=== PATIENT | female | born 2000 | race Caucasian/White ===

== ENCOUNTER → 2020-10-16 10:14 | Outpatient (BNVA) | payer OTHER, SELFPAY | PROVIDERS: Visit Provider Psychiatry & Neurology Neurology | DX: F41.9 Anxiety disorder, unspecified (principal) | CPT/HCPCS: 90834; 90791 ==

== ENCOUNTER 2022-06-26 03:44 | Outpatient (CLI) | payer MEDICAID, SELFPAY ==
[2022-06-26] VITALS (37 sets, daily range): BP systolic 138–160; BP diastolic 73–86; PULSE 16–130; RESP 18; TEMP 36.4; O2SAT 97–99; BMI 32.5
[2022-06-26] MEDS: betamethasone susp 6 mg/mL 5 mL 12 MG IM (04:29)
[2022-06-26] MEDS: terbutaline 1 mg/mL INJ 0.25 MG SUBCUT ×2 (04:29→05:57)
[2022-06-26] MEDS: magnesium sulfate premix 20 GM/500 ML BAG IV (04:36)
[2022-06-26] MEDS: magnesium sulfate premix 4 GM/100 ML PREMIX IV (04:37)
[2022-06-26] MEDS: dextrose 5%-lactated ringers 1,000 ML 125 ML IV (04:38)
[2022-06-26 04:39] LABS: Basophils # 0.1 10^3/uL (0.0-0.1); Basophils % 0.4 %; Eosinophils # 0.2 10^3/uL (0.0-0.8); Hemoglobin 9.4 g/dL (11.5-15.3); Lymphocytes # 1.9 10^3/uL (0.8-4.8); Lymphocytes % 16.3 %; Mean Corpuscular HGB Conc 32.4 g/dL (30.0-36.0); Mean Corpuscular Hemoglobin 26.3 pg (28.0-34.0); Mean Platelet Volume 11.2 fL (7.4-10.4); Monocytes # 0.7 10^3/uL (0.2-0.9); Monocytes % 6.3 %; Neutrophils # 8.49 10^3/uL (1.8-7.7); Neutrophils % 74.2 %; Nucleated Red Blood Cells % 0 %; Platelet Count 212 10^3/cmm (130-400); Red Blood Count 3.58 10^6/uL (4.1-5.3); Red Cell Distribution Width 13.9 % (12.1-15.1); White Blood Count 11.5 10^3/uL (4.0-10.0)
[2022-06-26] MEDS: lactated ringers 1,000 ML 100 ML IV (04:53)
[2022-06-26] MEDS: ampicillin 2,000 MG in sodium chloride 0.9% (plus) 50 ML 100 MG IV (04:53)
[2022-06-26 04:56] LABS: Alanine Aminotransferase 13 U/L (0-33); Albumin Level 2.8 g/dL (3.5-5.2); Alkaline Phosphatase 138 U/L (35-105); Anion Gap 14.9 (5-19); Aspartate Amino Transferase 18 U/L (0-32); Blood Urea Nitrogen 14 mg/dL (6-20); Calcium 8.9 mg/dL (8.5-10.5); Carbon Dioxide 19 mmol/L (22-29); Chloride 107 mmol/L (98-107); Globulin 2.9 g/dL (1.3-4.6); Glucose 92 mg/dL (65-115); Osmolality Calculated 284 mOsm/kg (285-295); Potassium 3.9 mmol/L (3.5-5.1); Sodium 137 mmol/L (136-145); Total Bilirubin 0.3 mg/dL (0.15-1.2); Total Protein 5.7 g/dL (6.6-8.7)
--- NOTE | 2022-06-26 05:06 | P.HP_ITS ---
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 care has been at [facility]. Pt records reviewed, was treated with Macrobid for UTI at 18wks . Hx of Anxiety 09/2020 treated with Lexapro. Upon presenttion pt was dayday q 3-4 ., Cervix 4cm/90%/-1 vtx, almost 1 hr later after Tocolysis Cervix 4-5cm/90%/0vtx. EFM contractions tocolyzed. 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 Risk of babies needing NICU for Breathing assistance as well as special feeding. Vitals/I&O/Wt Last Vital Signs Pulse 105 H 06/26/22 05:01 Resp 18 06/26/22 03:56 BP 152/85 06/26/22 05:01 Pulse Ox 98 06/26/22 05:00 Weight last 48 hrs Weight 91.626 kg Physical Exam Const: COMMON NORMALS: no acute distress, patient oriented x3, healthy cristhian earing, alert and well nourished HENMT: COMMON NORMALS: normocephalic Resp: COMMON NORMALS: normal respiratory effort and clear to auscultation bilaterally Cardio: COMMON NORMALS: regular rate and regular rhythm Back/Pelvis: OTHER: cervix exam as above Extremity: COMMON NORMALS: normal to inspection Data 06/26/22 04:25 06/26/22 04:25 A&P Assessment and plan (1) 33 weeks gestation of : (2) Twin gestation in third trimester: (3) SROM (spontaneous rupture of membranes): Plan 1. Will Transfer to High Risk LD at [facility] for delivery for NICU services. Attestations Medical Necessity Statement*: High Risk care Twin Gestation at 33 wk with SROM. Anticipate Transfer. Time Spent in Patient Care: Greater than 35 minutes Coding Level of Care Code Acute Triage Clinician for Chg Fwd Diagnoses 33 weeks gestation of Z3A.33 Twin gestation in third trimester O30.003 SROM (spontaneous rupture of membranes)
[2022-06-26 05:22] LABS: Amphetamines Screen Urine Negative (Negative); Barbiturates Screen Urine Negative (Negative); Benzodiazepines Screen Urine Negative (Negative); Cocaine Screen Urine Negative (Negative); Opiate Screen Urine Negative (Negative); PCP Screen Urine Negative (Negative); THC Screen Urine Negative (Negative)
[2022-06-26 05:23] LABS: Nitrazine Paper, PH Positive
[2022-06-26 05:42] LABS: Hepatitis B Surface Antigen Non-Reactive (Nonreactive); Rubella IgG 63.2 IU/mL (0.0-10.0)
[2022-06-26 05:46] LABS: Rapid Plasma Reagin Syphilis Nonreactive (Nonreactive)
[2022-06-26 05:50] LABS: HIV 1 & 2 Antibody Non-Reactive (Non-Reactiv); HIV 1 & 2 Antigen Non-Reactive (Non-Reactiv)
[2022-06-26 05:51] LABS: Bacteria Urine 1+ /hpf; Bilirubin Urine Neg (Negative); Blood Urine 2+ (Negative); Glucose Urine UA Norm (Normal); Ketones Urine Negative (Negative); Leukocyte Esterase Urine Trace (Negative); Nitrate Urine Negative (Negative); Protein Urine 3+ (Negative); RBC Urine 15-25 /hpf (0-2); Urine Appearance Clear (CLEAR); Urine Color Yellow (Yellow); Urobilinogen Urine Norm (Negative); pH Urine 6.5 (5-7)
[2022-06-26 05:52] LABS: Add Urine Culture? No; Mucus Urine 1+ /hpf; Renal Epithelial Cells Urine 0-2 /hpf; Transitional Epi Cells Urine RARE /hpf
== END 2022-06-26 06:49 | disposition other institution (70) ==
LOC: OPOB 03:59 → OBGYN 04:02
PROVIDERS: Visit Provider Obstetrics & Gynecology
DX: O30.003 Twin pregnancy, unspecified number of placenta and unspecified number of amniotic sacs, third trimester (principal); Z3A.33 33 weeks gestation of pregnancy
CPT/HCPCS: 12345; 36415; 51702; 59025; 80053; 80306; 81001; 83986; 85025; 86592; 86762; 86850; 86900; 87340; 87491; 87591; 87806; 96372; 99211; J0290; J0702; J3105; J3475; J7120; J7121

== ENCOUNTER 2023-08-24 05:41 | Inpatient (IN) | payer MEDICAID, SELFPAY ==
[2023-08-24] VITALS (16 sets, daily range): BP systolic 122–149; BP diastolic 60–87; PULSE 61–85; RESP 18; TEMP 36.7–36.8; O2SAT 97–98; BMI 24.2
[2023-08-24] MEDS: oxytocin 30 UNIT/500 ML BAG 600 UNIT IV (05:58)
--- NOTE | 2023-08-24 06:29 | PM.OPHPUD ---
Labor & Delivery H&P Update Date of Procedure: August 24, 2023 Date H&P Performed: 08/20/23 Admission Diagnosis: at 39 weeks 3 days gestation in active labor Planned procedure: Expectant management and delivery
--- NOTE | 2023-08-24 06:32 | P.PCNOB_ITS ---
Delivery Note: Date of delivery: August 24, 2023 Procedure: Normal spontaneous vaginal delivery Estimated blood loss (mL): 100 Pre-Delivery Course: The patient had routine care at [facility]. She was blood type a positive, antibody negative, hepatitis B nonreactive, hepatitis C nonreactive, HIV nonreactive, rubella immune, GC chlamydia negative, RPR nonreactive, Q low risk, she was positive for GBS on her initial urine culture. Delivery: This is a 23-year-old at 39 weeks 3 days gestation who presented to labor and delivery completely dilated and effaced. I arrived less than a minute after and the was on mother's chest crying. The cord was clamped and cut. The placenta was delivered grossly intact and normal to inspection. There was a very small second-degree perineal laceration that was sutured using 3-0 chromic. The area was first cleaned with Betadine and numbed using 1% lidocaine. Mother and infant were doing well after delivery. Of note mother is known to be GBS positive but obviously did not have time to receive any antibiotics prior to delivery. History History History 1 Term 0 Miscarriages/Ectopic Living Children A&P Assessment and plan (1) Normal spontaneous vaginal delivery: Coding Level of Care Code Acute Code for Chg Fwd Diagnoses Normal spontaneous vaginal delivery O80
[2023-08-24] MEDS: LIDOCAINE 1% (06:40)
[2023-08-24 07:38] LABS: Basophils # 0.1 10^3/uL (0.0-0.1); Basophils % 0.4 %; Eosinophils # 0.3 10^3/uL (0.0-0.8); Eosinophils % 2.2 %; Hematocrit 38.7 % (36-47); Lymphocytes # 3.5 10^3/uL (0.8-4.8); Lymphocytes % 27.1 %; Mean Corpuscular HGB Conc 33.9 g/dL (30-55); Mean Corpuscular Volume 88.8 fl (85-98); Mean Platelet Volume 10.9 fL (7.4-10.4); Monocytes # 0.7 10^3/uL (0.2-0.9); Monocytes % 5.4 %; Neutrophils # 8.22 10^3/uL (1.8-7.7); Neutrophils % 64.2 %; Nucleated Red Blood Cells % 0 %; Platelet Count 303 10^3/cmm (157-399); Red Blood Count 4.36 10^6/uL (3.85-5.65); Red Cell Distribution Width 12.9 % (12.1-15.1); White Blood Count 12.79 10^3/uL (3.29-11.43)
[2023-08-24] MEDS: prenatal vitamin Capsule 1 CAP PO (08:49)
[2023-08-24] MEDS: lanolin oint 7 gm 1 APPLIC TOPICAL (08:49)
[2023-08-24] MEDS: docusate sodium 100 mg Capsule PO ×2 (08:49→21:05)
[2023-08-24] MEDS: ibuprofen 800 mg tablet PO ×3 (08:49→21:05)
[2023-08-24] MEDS: benzocaine-menthol 78 gm Canister 1 SPRAY TOPICAL (08:49)
[2023-08-24 20:29] LABS: Hematocrit 32.5 % (36-47); Mean Corpuscular HGB Conc 34.5 g/dL (30-55); Mean Corpuscular Hemoglobin 29.9 pg (27-33); Mean Corpuscular Volume 86.9 fl (85-98); Mean Platelet Volume 11.1 fL (7.4-10.4); Platelet Count 240 10^3/cmm (157-399); Red Blood Count 3.74 10^6/uL (3.85-5.65); Red Cell Distribution Width 13.1 % (12.1-15.1); White Blood Count 13.32 10^3/uL (3.29-11.43)
[2023-08-25 04:00] VITALS: BP 115/72; PULSE 75; RESP 18; TEMP 36.4; O2SAT 98
[2023-08-25] MEDS: docusate sodium 100 mg Capsule PO ×2 (08:47→20:46)
[2023-08-25] MEDS: ibuprofen 800 mg tablet PO ×3 (08:47→20:46)
[2023-08-25] MEDS: prenatal vitamin Capsule 1 CAP PO (08:47)
[2023-08-25 08:55] VITALS: BP 127/80; PULSE 85; TEMP 36.6; O2SAT 96
[2023-08-25 17:17] VITALS: BP 126/81; PULSE 89; TEMP 36.7
--- NOTE | 2023-08-25 17:44 | P.PN_ITS ---
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 Labor: Station: +1 Amniotic Membrane Status: Ruptured Vitals/I&O/Wt Last Vital Signs Temp 98.0 F 08/25/23 17:17 Pulse 89 08/25/23 17:17 Resp 18 08/25/23 04:00 BP 126/81 08/25/23 17:17 Pulse Ox 96 08/25/23 08:55 O2 Del Method Room Air 08/25/23 08:55 Weight last 48 hrs Weight 68.039 kg Physical Exam 2 Narrative: alert and oriented, feeding baby in bed RRR CTA soft, NT, ND, fundus firm 1+ edema but no calf tenderness Data 08/24/23 20:10 A&P Assessment and plan (1) Normal spontaneous vaginal delivery: routine care Attestations 2 Medical Necessity Statement*: routine care Coding Level of Care Code Acute Code for Chg Fwd Diagnoses Normal spontaneous vaginal delivery O80
[2023-08-25 22:00] VITALS: BP 120/75; PULSE 82; RESP 18; TEMP 36.6; TEMP 36.7; O2SAT 97
[2023-08-26 04:00] VITALS: BP 128/82; PULSE 74; RESP 16; TEMP 36.6; O2SAT 97
[2023-08-26 09:00] VITALS: BP 101/74; PULSE 112; RESP 17; TEMP 36.6; O2SAT 97
[2023-08-26] MEDS: prenatal vitamin Capsule 1 CAP PO (09:16)
[2023-08-26] MEDS: docusate sodium 100 mg Capsule PO (09:16)
--- NOTE | 2023-08-26 12:28 | PM.DCS ---
Discharge Providers Date of Admission: 08/24/23 05:41 Date of Discharge: August 26, 2023 Attending Provider at Admission: Shira Arboleda MD Attending Provider at Discharge: Shira Arboleda MD Diagnoses at Discharge Discharge Diagnosis (1) Normal spontaneous vaginal delivery: Status: Acute Reason for Visit Reason for Visit: contractions Hospital Course Hospital Course This is a 23 y/o who had a of a FT viable . She has done well after delivery and has vaginal bleeding. She is comfortable w d/c home. Physical Exam Narrative: A&O feeding baby in bed RRR, no murmur CTA B soft NT, ND, fundus firm no calf tenderness no edema Discharge Data Studies Completed and Pending Laboratory Results WBC 13.32 10^3/uL (3.29-11.43) H 08/24/23 20:10 RBC 3.74 10^6/uL (3.85-5.65) L 08/24/23 20:10 Hgb 11.20 g/dL (11.27-16.99) L 08/24/23 20:10 Hct 32.5 % (36-47) L 08/24/23 20:10 MCV 86.9 fl (85-98) 08/24/23 20:10 MCH 29.9 pg (27-33) 08/24/23 20:10 MCHC 34.5 g/dL (30-55) 08/24/23 20:10 RDW 13.1 % (12.1-15.1) 08/24/23 20:10 Plt Count 240 10^3/cmm (157-399) 08/24/23 20:10 MPV 11.1 fL (7.4-10.4) H 08/24/23 20:10 Neut % (Auto) 64.2 % 08/24/23 05:45 Lymph % (Auto) 27.1 % 08/24/23 05:45 [place] % (Auto) 5.4 % 08/24/23 05:45 Eos % (Auto) 2.2 % 08/24/23 05:45 Baso % (Auto) 0.4 % 08/24/23 05:45 Neut # (Auto) 8.22 10^3/uL (1.8-7.7) H 08/24/23 05:45 Lymph # (Auto) 3.5 10^3/uL (0.8-4.8) 08/24/23 05:45 [place] # (Auto) 0.7 10^3/uL (0.2-0.9) 08/24/23 05:45 Eos # (Auto) 0.3 10^3/uL (0.0-0.8) 08/24/23 05:45 Baso # (Auto) 0.1 10^3/uL (0.0-0.1) 08/24/23 05:45 Nucleated RBC % (auto) 0 % 08/24/23 05:45 Nucleated RBCs # 0.0 /100WBC 08/24/23 05:45 Blood Type A Positive 08/24/23 05:45 Rho(D) Type Rh positive 08/24/23 05:45 Antibody Screen Negative 08/24/23 05:45 Vitals Last Vital Signs Temp 97.8 F 08/26/23 09:00 Pulse 112 H 08/26/23 09:00 Resp 17 08/26/23 09:00 BP 101/74 08/26/23 09:00 Pulse Ox 97 08/26/23 09:00 O2 Del Method Room Air 08/26/23 09:00 Discharge Plan Discharge Patient Disposition: Home Condition: Stable Prescriptions: Continued Vitamin 1 tab PO DAILY Discharge Orders: Discharge Order (Routine); Ordered 08/26/23 Ordered By: Shira Arboleda Discharge Diet: Usual diet Discharge Activity: Limit activity as instructed Patient Instructions: Depression (DC), Bleeding (DC), Preeclampsia and Eclampsia After Delivery (GEN), Hemorrhage (DC), OB Discharge Report, OB Food/Drug Interaction Guide, OB Care at Home, Opioid Safety, OB Vaginal Deliveries Activity Restrictions/Additional Instructions: nothing per vagina for 6 weeks Discharge Attestations Time Spent in Discharge Care*: less than 30 min Quality Metrics Clinical Quality Measures [ No reported AMI, CVA or VTE this stay] Coding Level of Care Code Acute Code for Chg Fwd Diagnoses Normal spontaneous vaginal delivery O80
[2023-08-26 13:53] VITALS: BP 134/78; PULSE 85; RESP 17; TEMP 36.7; O2SAT 94
[2023-08-26 14:14] VITALS: BP 134/78; PULSE 85; RESP 17; TEMP 36.7; O2SAT 94
== END 2023-08-26 14:14 | disposition home or self-care (01) | DRG 807 ==
LOC: OPOB 06:50 → OBGYN 06:50
PROVIDERS: Admitting Provider Family Medicine; Visit Provider Family Medicine
DX: O99.824 Streptococcus B carrier state complicating childbirth (principal); Z37.0 Single live birth; O70.1 Second degree perineal laceration during delivery; Z3A.39 39 weeks gestation of pregnancy
CPT/HCPCS: 36415; 59409; 85025; 85027; 86850; 86900; 98960; 99211; J2590

== ENCOUNTER 2025-05-23 09:51 | Outpatient (CLI) | payer BC, MEDICAID, SELFPAY | END 2025-05-23 09:52 | disposition home or self-care (01) | PROVIDERS: Visit Provider Family Medicine | DX: O03.9 Complete or unspecified spontaneous abortion without complication (principal) | CPT/HCPCS: 84702 ==